=== PATIENT | female | born 1990 | race Caucasian/White ===

== ENCOUNTER → 2018-01-26 | Outpatient (CLI) | payer OTHER ==
[~2018-01-26] MED LIST: CALCIUM 500 +1 EAC4 PO; PRENATAL ONE T1 EACH PO; ZANTAC 150MG T150 MG PO
== END | disposition home or self-care (01) ==
LOC: M.ULTRA 08:26
DX: E04.1 Nontoxic single thyroid nodule (principal)

== ENCOUNTER → 2018-07-07 | Day surgery (SDC) | payer OTHER ==
[~2018-07-07] VITALS: Ht 175.3 cm; Wt 65.8 kg
--- NOTE | ~2018-07-07 | OP ---
[address] [address] OPERATIVE REPORT Name: EVAN BERNAL Room: [facility]#: [id number] Admission: 07/07/18 Attend Phys: Anthony Vargas MD Discharge: Date of : 88 Report #: [id number] THIS REPORT FOR: //name// CC: AZAM Vargas [facility] physician/PCP DATE OF SERVICE: 07/07/2018 PREOPERATIVE DIAGNOSIS: Left thyroid nodule. POSTOPERATIVE DIAGNOSIS: Left thyroid nodule. PROCEDURE PERFORMED: 1. Left hemithyroidectomy. 2. Laryngeal nerve monitoring. SURGEON: Anthony Vargas MD. ANESTHESIA: General. ESTIMATED BLOOD LOSS: Minimal. SPECIMENS: Left hemithyroidectomy. COMPLICATIONS: None. INTRAOPERATIVE FINDINGS: She had a large 4 cm goiter on the left side. The recurrent laryngeal nerve was identified and stimulated at 0.5 milliamps. INDICATIONS: This is a very pleasant young female with a history of an enlarging left neck mass after . On exam, she was noted to have an obvious left thyroid mass. An ultrasound was performed revealing a large left-sided thyroid goiter. Fine needle biopsy was performed and was negative for malignancy. The risks, benefits and alternatives of surgical intervention were discussed at length with her and she wished to proceed forward with surgery at this time. DESCRIPTION OF PROCEDURE: After informed consent was obtained, the patient was brought to the operating room and placed on the operative table in supine position. General endotracheal anesthesia was induced with a laryngeal nerve monitoring tube. Once the tube was found to be in good position, it was attached to the nerve monitoring system and found to be functioning well. This was used throughout the remainder of the procedure to identify and preserve the recurrent laryngeal nerves. The patient was then placed into extension with a shoulder roll. An incision was planned 2 finger[place] [address] OPERATIVE REPORT Name: EVAN BERNAL Room: [facility]#: [id number] Admission: 07/07/18 Attend Phys: Anthony Vargas MD Discharge: Date of : 88 Report #: [id number] notch. This area was injected with 1% lidocaine with epinephrine. The patient was then prepped and draped in the usual sterile fashion. I began with a 15 blade scalpel to make an incision through the skin and subcutaneous tissues. The platysma was divided in the midline. The strap muscles were then identified and divided from the midline from the cricoid cartilage to the sternal notch. In a medial to lateral direction on the left side, I peeled the strap muscles off of the thyroid isthmus exposing the entire left lobe of the thyroid gland, 2-0 silk sutures were then placed through the gland to retract the gland inferiorly. I then carefully isolated, clipped and ligated the superior pedicle. The gland was then rotated medially off of the cricoid esophageal joint. The recurrent laryngeal nerve was identified and preserved entering the cricothyroid membrane. With the nerve under direct visualization, I carefully peeled off the superior and inferior parathyroid glands as well and then the gland was carefully freed from its attachments to the trachea using bipolar and sharp dissection. The inferior pedicle was then clipped and ligated and the isthmus was divided in the midline with using Harmonic scalpel. The specimen was then passed off for frozen section which was negative for malignancy. Bleeding was controlled with a bipolar cautery device. Surgicel was then placed into the wound bed. The strap muscles were reapproximated using interrupted 3-0 Vicryl suture. The skin was closed with deep 3-0 Vicryl suture and a running 5-0 subcuticular Monocryl. At this point, the procedure was then terminated. The patient was turned over to anesthesia. She was awakened, extubated, and taken to recovery in stable condition. By: [id number] Vargas MD /radha
[2018-07-07 10:59] LABS: HEMATOCRIT 43.7 % (37.0-47.0); HEMOGLOBIN 14.7 gm/dL (12.0-15.0)
[2018-07-07 11:28] VITALS: BP 94/53
--- NOTE | 2018-07-09 15:07 | PATH ---
[address] [address] PATHOLOGY RPT PROCEDURE Name: EVAN BERNAL Room: [facility].#: [id number] Admission: 07/07/18 Date of : 88 Discharge: Report #: [id number] Path Case #: [id number] [facility] Accession Number: [id number] . 01 Material submitted: . LEFT THYROID MASS - FS . 01 Clinical history: . Left thyroid mass . 02 Diagnosis: Left thyroid nodule: - Benign adenomatoid nodule. (ADITYA:phyllis; 07/08/2018) QMS/07/08/2018 . 02 Electronically signed: . Kevin Davis MD, Pathologist NPI- [id number] . 01 Gross description: . Received fresh from the OR accompanied by a label marked with "Evan Bernal, left thyroid nodule", and consists of a smooth globoid, beefy red, ovoid mass weighing 42 grams and having greatest dimensions of 5.6 x 4.[address] Vargas requests intraoperative evaluation noting that this is an isolated large mass which was previously FNA'd and found to be benign. The surface is inked black and the specimen is serially cross-sectioned to reveal a homogeneous beefy red to pink interior. A TouchPrep is prepared and sales service representative section is submitted for frozen studies with the remainder of that tissue frozen submitted in cassette A1. Additional sales service representative sections taken from throughout the mass are submitted in cassettes A2 through A4. (ADITYA:phyllis; 07/07/2018) . . FROZEN DIAGNOSIS WITH TOUCHPREP: (Kevin Davis M.D.) . Left thyroid nodule: - Macrofollicular lesion, most likely benign - defer to permanents. . The sectioned tissues and final diagnosis are relayed directly to Dr. Vargas in the operating room and a note is entered into the medical record. (ADITYA:[facility]; 07/07/2018) . Frozen section performed at [facility], [address] [place] [address]. [place] [address] PATHOLOGY RPT PROCEDURE Name: BERNALEVAN Room: [facility]#: [id number] Admission: 07/07/18 Date of : 88 Discharge: Report #: [id number] Path Case #: [id number] /SHS . 02 Pathologist provided ICD-10: E04.1 . 02 CPT . 321522, 501576 Specimen Comment: A courtesy copy of this report has been sent to Specimen Comment: [phone], . Specimen Comment: Report sent to / DR PATTERSON Specimen Comment: A duplicate report has been generated due to demographic updates. Performed at: 01 [facility] [address] [place] [address] [address], [place], [place] [id number] MD Johnnie Christianson MD Phone: [phone] Performed at: 02 [facility] [address] [address], [place], [place] [id number] MD Kevin Davis MD Phone: [phone]
== END | disposition home or self-care (01) ==
LOC: M.SUR 08:19
PROVIDERS: Student in an Organized Health Care Education/Training Program
DX: E04.1 Nontoxic single thyroid nodule (principal); Z98.890 Other specified postprocedural states; Z88.0 Allergy status to penicillin; Z79.899 Other long term (current) drug therapy

== ENCOUNTER → 2018-07-30 | Outpatient (CLI) | payer OTHER | LOC: M.LAB 11:06 | DX: E03.9 Hypothyroidism, unspecified (principal) ==